=== PATIENT | female | born 2005 | race Caucasian/White ===

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

== ENCOUNTER 2023-08-15 13:56 | Inpatient (IN) ==
[2023-08-15] MEDS ORDERED: Lidocaine 1% VIAL 10 MG/ML 30 ML VIAL INJ PRN (15:05)
[2023-08-15] MEDS ORDERED: Prochlorperazine 5 mg/ml 2 ml VIAL (10 mg) IV PRN (15:05)
[2023-08-15] MEDS: Buffered Lidocaine 1% SYRIN 1 ml ONE (15:30)
[2023-08-15] MEDS: Lactated Ringers 1000 ml BAG 1,000 ML IV ONE ×2 (15:40→21:47)
[2023-08-15] MEDS: Buffered Lidocaine 1% SYRIN 1 ml INTRADERM ONE (16:28)
[2023-08-15 16:36] LABS: Hematocrit 33.5 % (35-45); Hemoglobin 11.2 g/dL (11.5-14.3); Mean Corpuscular Hgb Conc 33.4 g/dL (31-36); Mean Corpuscular Volume 86.8 fL (80-97); Mean Platelet Volume 9.4 fL (7.5-11.2); Platelet Count 194 10^3/uL (150-450); Red Blood Count 3.86 10^6/uL (3.63-4.92); White Blood Count 19.9 10^3/uL (3.8-11.8)
[2023-08-15 16:46] LABS: Urine Benzodiazepine Screen None Detected (None Detect); Urine Cannabinoids Screen Presumptive Positive (None Detect); Urine Opiates Screen None Detected (None Detect)
[2023-08-15 17:42] LABS: ABS Eosinophils 0.2 10^3/uL (0.0-0.5); ABS Lymphocytes 2.9 10^3/uL (1.0-4.8); ABS Monocytes 1.3 10^3/uL (0.0-0.9); ABS Neutrophils 15.5 10^3/uL (1.5-7.6); ABS Nucleated RBC 0.01 10^3/ul; Eosinophil % 0.9 %; Lymphocyte % 14.5 %
[2023-08-15] MEDS: Calcium Carb (TUMS) 500 mg CHEW TAB PO PRN (18:51)
[2023-08-15] MEDS ORDERED: Glycerin ADULT 2.4 gm SUPP PR PRN (19:18)
[2023-08-15] MEDS ORDERED: Dibucaine 1% OINT 28.35 GM TUBE PR PRN (19:18)
[2023-08-15] MEDS ORDERED: Witch Hazel PAD JAR TOPICAL PRN (19:18)
[2023-08-15] MEDS ORDERED: Lactated Ringers 1000 ml BAG 1,000 ML IV SCH (20:00)
[2023-08-15] MEDS ORDERED: Sodium Citrate/Citric Acid LIQ 15 ML UDC PO PRN (20:39)
[2023-08-15] MEDS: Lactated Ringers 1000 ml BAG 1,000 ML IV SCH (20:55)
[2023-08-15] MEDS: OBEPIDURAL (200 ML) 200 ML EPIDURAL SCH (22:37)
[2023-08-15 23:56] LABS: Urine Appearance Clear; Urine Bilirubin Negative (Negative); Urine Blood Negative (Negative); Urine Color Colorless; Urine Glucose Negative (Negative); Urine Ketones Negative (Negative); Urine Nitrite Negative (Negative); Urine Protein Negative (Negative); Urine Specific Gravity 1.004 (1.002-1.030); Urine Urobilinogen Negative (Negative)
[2023-08-16] MEDS: Lactated Ringers 1000 ml BAG 1,000 ML IV SCH (00:34)
[2023-08-16] MEDS: Bupivacaine 0.25% SDV PF 10 ML VIAL INJ ONE (01:05)
[2023-08-16] MEDS: fentaNYL 100 mcg/2 ml 50 MCG/ML VIAL ONE (01:05)
[2023-08-16] MEDS: Lidocaine 1.5% EPI 1:200,000 30 ML SDV ONE (01:05)
[2023-08-16] MEDS: Ondansetron 4 mg VIAL 2 MG/ML 2 ml VIAL ONE (01:06)
[2023-08-16] MEDS: Oxytocin in LR 20,000 MILLI.UNIT/1,000 ML BAG IV SCH (03:45)
[2023-08-16] MEDS ORDERED: Glycerin ADULT 2.4 gm SUPP PR PRN (05:30)
[2023-08-16] MEDS ORDERED: Lactated Ringers 1000 ml BAG 1,000 ML IV SCH (06:00)
[2023-08-16] MEDS: Dibucaine 1% OINT 28.35 GM TUBE PR PRN (06:34)
[2023-08-16] MEDS: Witch Hazel PAD JAR TOPICAL PRN (06:34)
[2023-08-17 07:36] LABS: Hematocrit 36.7 % (35-45); Hemoglobin 12.4 g/dL (11.5-14.3); Mean Corpuscular Hemoglobin 29.4 pg (27-33); Mean Corpuscular Hgb Conc 33.8 g/dL (31-36); Mean Platelet Volume 8.8 fL (7.5-11.2); Platelet Count 196 10^3/uL (150-450); Red Blood Count 4.22 10^6/uL (3.63-4.92); Red Cell Distribution Width 12.9 % (12-17); White Blood Count 22.2 10^3/uL (3.8-11.8)
[2023-08-17] MEDS: Oxytocin in LR 20,000 MILLI.UNIT/1,000 ML BAG IV SCH (08:03)
[2023-08-17] MEDS: Oxytocin in LR 20,000 MILLI.UNIT/1,000 ML BAG IV ONE (08:03)
[2023-08-17] MEDS: Lactated Ringers 1000 ml BAG 1,000 ML IV SCH (08:04)
[2023-08-17 08:19] VITALS: BP 116/89
[2023-08-17 08:30] LABS: ABS Basophils 0.2 10^3/uL (0.0-0.1); ABS Eosinophils 0.2 10^3/uL (0.0-0.5); ABS Lymphocytes 3.2 10^3/uL (1.0-4.8); ABS Monocytes 0.9 10^3/uL (0.0-0.9); ABS Neutrophils 17.7 10^3/uL (1.5-7.6); Eosinophil % 1.1 %; Lymphocyte % 14.5 %; RBC Morphology Normal (Normal)
== END 2023-08-17 13:09 | disposition home or self-care (01) | DRG 560 ==
LOC: MCHOBOUT 13:56 → MCHOB 15:13
PROVIDERS: ADMIT Advanced Practice Midwife; ATTEND Advanced Practice Midwife